=== PATIENT | female | born 1995 | race Caucasian/White ===

== ENCOUNTER 2017-01-31 18:05 | Emergency (ER) | payer BC ==
[2017-01-31 18:10] VITALS: BP 132/87; PULSE 66; RESP 16; TEMP 98.2; O2SAT 98
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
[2017-01-31] MEDS ORDERED: IBUPROFEN 600 MG TAB PO ONE (18:54)
[2017-01-31] MEDS ORDERED: ONDANSETRON DISINTEGRATING 4 MG TAB PO ONE (18:54)
[2017-01-31] MEDS ORDERED: IBUPROFEN 200 MG TAB PO ONE (19:04)
== END 2017-01-31 19:13 | disposition home or self-care (01) ==
DX: H72.93 Unspecified perforation of tympanic membrane, bilateral (principal); J45.909 Unspecified asthma, uncomplicated

== ENCOUNTER 2018-07-27 11:26 | Emergency (ER) | payer BC, OTHER ==
--- NOTE | 2018-07-27 12:09 | EDPHY ---
General Time Seen by Provider: 07/27/18 12:05 Narrative: CLINICAL IMPRESSION: Right knee pain ASSESSMENT/PLAN: Patient is a 23-year-old female with no significant medical history who presents with complaint of right pain after sustaining a fall while skiing yesterday. Patient is nontoxic-appearing, she is in no acute distress on arrival. Knee x-rays reveal no acute bony abnormality. There was no evidence of acute fracture, dislocation, compartment syndrome or neurovascular compromise. Patient had some anterior laxity suspicious for ACL injury in conjunction with hyper extension mechanism. Her history and physical examination is most consistent with right knee pain. The patient was placed in a knee immobilizer. CMS intact post splint placement. She will otherwise continue Tylenol and ibuprofen. Patient does not have a PCP, referral was provided. Orthopedic referral provided as well, she will call tomorrow to schedule follow-up appointment for repeat examination. She understands that she may need additional imaging to include MRI. Return precautions discussed- patient to return to the emergency Department for significantly worsening or uncontrolled pain, significant swelling, numbness or tingling of the extremity, paleness or coolness of her digits, fever or for any other concerning symptom. The patient verbalizes understanding and she is in agreement with this plan. DIFFERENTIAL DX: Knee injury while skiing including but not limited to fracture, ACL injury, contusion, muscular strain, and meniscus injury. ED COURSE: 12:00 p.m.: Discussed with Dr. Cruz CHIEF COMPLAINT: Right knee discomfort and feeling of instability HPI: Patient is a 23-year-old female with no significant medical history who presents to the emergency department with right knee pain and feeling of instability after sustaining a fall skiing yesterday. Patient reports she was going off a small [place], she landed hard on both legs and believes she had a hyperextension injury of the right leg. She immediately experienced pain however was able to continue [place] the [place]. She has been able to ambulate however has since been experiencing feeling of instability. She denies significant pain or swelling. There is no bruising or open wounds. She denies any numbness or tingling of the extremity. She denies any calf pain. She denies any other injury or complaint. PAST MEDICAL HISTORY: Denies Pertinent Past Surgical History: Denies Family History: Not contributory Social History: Denies ROS: A full 10 point review of systems was negative except for those mentioned in HPI. PHYSICAL EXAM: General Appearance: Well-developed, well-appearing and in no acute distress. HEENT: TMs are clear bilaterally no perforation or FB, no injection, no evidence of serous or mucopurulent otitis. Oropharynx clear is no erythema or exudates, no tonsillar hypertrophy or asymmetry. Dentition without abnormality. Eyes: PERRLA, no acute vision change, nystagmus, swelling, discharge, pain or photosensitivity. Conjunctiva pink, no pallor or injection Neck: Supple, nontender, no lymphadenopathy, no midline pain, FROM, no meningismus. Respiratory: There are no retractions, lungs are clear to auscultation. Cardiac: Regular rate and rhythm, no murmurs or gallops. Gastrointestinal: Abdomen is soft, nontender, bowel sounds normal, no masses/ hernia, no rigidity, guarding or focal peritoneal findings. Skin: Warm, dry, no rashes, no nodules on palpation. Upper Extremities: Intact distal pulses, Full range of motion intact, no tenderness, no ecchymosis or edema Lower Extremities: Right knee is generally nontender, no obvious swelling or bruising. Patient with no posterior laxity however a mild amount of anterior laxity is appreciated. Intact distal pulses, No edema, No tenderness, No cyanosis, full range of motion intact, No calf tenderness bilaterally. MEDICAL DECISION MAKING: Patient was seen independently. Secondary supervising physician at time of evaluation was Dr. Cruz. Diagnosis: Right knee pain. New, requires workup Summary: See Assessment and Plan for summary of ED visit Clinical lab tests: Not applicable. Independent visualization of images, tracing, or specimens: Yes. Decision to obtain medical records or history from someone other than the patient: No Review / Summarize previous medical records: None available Discussed patient with another provider: Yes, Dr. Cruz Patient Progress: Stable, discharged. - Diagnostics Imaging Results: Imaging Impressions Knee X-Ray 07/27/18 12:05 Impression: 1. No fracture or dislocation of the right knee. 2. No definite joint effusion. 3. Consider additional follow-up imaging, if clinically indicated. - History Smoking Status: Never smoked - Objective Vital Signs: Initial Vital Signs Heart Rate 64 07/27/18 14:17 Blood Pressure 114/74 07/27/18 14:17 O2 Sat (%) 95 07/27/18 14:17 O2 Delivery Mode Room Air Allergies/Adverse Reactions: cat dander Allergy (Verified 01/31/17 18:10) Home Medications: Medication Instructions Recorded Ortho[facility] 1-35-28 Tablet 07/27/18 Departure - Departure Disposition: Home, Routine, Self-Care Clinical Impression: Right knee pain Qualifiers: Chronicity: acute Qualified Code(s): M25.561 - Pain in right knee Condition: Good Instructions: Knee Pain (ED) Additional Instructions: DISCHARGE INSTRUCTIONS FROM YOUR DOCTOR Thank you for visiting our emergency department today. Please keep in mind that discharge from the emergency department does not mean that there is nothing wrong - it simply means that we have not identified an emergency condition that requires further evaluation or treatment in the hospital. You should always plan to follow up with primary care for re-evaluation of your condition in the next 2-3 days. If you have been referred to a specialist, please call as soon as possible (today or tomorrow) to schedule your follow up appointment at the appropriate time. Ice on and off to the affected knee. Elevate as much as possible. Wear the SUE wrap for compression to help decrease the swelling. Wear your knee immobilizer for the next few days for comfort and support. Limit weightbearing and walking and use your crutches as needed. You can walk and bear weight as tolerated. Ibuprofen as directed as needed for pain. Take with food. Stop for stomach upset. Do not exceed 2400 mg in 24 hours. Tylenol as directed as needed for less severe pain. Do not exceed 4000 mg in 24 hours. Call and schedule a follow-up re-evaluation appointment with your primary care physician in the next 3-7 days. As discussed, you may require further evaluation and/or treatment, ie: an MRI, physical therapy, and/or an orthopedic consultation-- all depending on your healing course. Orthopedic injuries you are at increased risk for developing a blood clot in your leg. Be sure to gently stretch your calf on and off throughout the day and seek follow-up care immediately for any calf pain, redness, swellling, ankle swelling, or other concerns. Return for increased or unmanageable pain, new injury, new site of pain, numbness, tingling, weakness of the leg, coolness or discoloration of the leg/ foot/ankle, redness, swelling, fever, difficulty breathing, chest pain, calf pain, ankle swelling, severe headache, back pain, or for any other new, worsening, or worrisome symptoms. People present with illnesses and injuries in different ways, and it is always possible that we have missed something. You may always return for re-evaluation if symptoms worsen or if they are not improving or if you develop new/different symptoms. Again, thank you for choosing our emergency department. We hope that you feel better. Referrals: Yoli Shukla MD [Medical Doctor] - As per Instructions Ryan Shen MD [Medical Doctor] - 2-3 days, call for appt.
[2018-07-27 14:18] VITALS: BP 114/74
== END 2018-07-27 14:18 | disposition home or self-care (01) ==
DX: M25.561 Pain in right knee (principal)
CPT/HCPCS: L1830